=== PATIENT | male | born 1935 | race Caucasian/White ===

== ENCOUNTER 2016-09-09 04:56 | Inpatient (IN) | payer MEDICARE ==
[~2016-09-09] VITALS: Ht 177.8 cm; Wt 75.7 kg
[~2016-09-09 04:56] MED LIST: ALPR0.255 PO; ASPI-866 PO; CHOL20004 PO; DOCU-286 PO; GABA300C PO; HYDR-3326 PO; INSU100I14 SQ; INSU100V7 SQ; LEVO75TA PO; MAGN400T26 PO; ROSU10TA PO; TRIA0.252 PO
--- NOTE | 2016-09-09 05:09 | NUR ---
RA Tilley REPORTS THE PT TAKES THE FOLLOWING MEDICATIONS BUT DOES NOT KNOW THE DOSAGE OR THE TIMES: INSULIN, ARICEPT, ASPIRIN, COZARR, METOPROLOL, NEURONTIN, VALIUM, PLAVIX, RESTORIL Addendum: 09/09/16 at 0510 by SHENG PT IS NOT CERTAIN OF THE DOSAGES, OR THE TIMES OF THE MEDICATIONS....
[2016-09-09 05:33] LABS: BASOPHILS # (AUTO) 0.1 K/uL (0.0-8.0); BASOPHILS % (AUTO) 0.5 % (0.0-2.0); EOSINOPHILS # (AUTO) 1.6 K/uL (0.0-0.7); EOSINOPHILS % (AUTO) 10.7 % (0.0-7.0); HEMATOCRIT 28.9 % (40-50); HEMOGLOBIN 9.4 G/DL (14.0-18.0); LYMPHOCYTES % (AUTO) 7.1 % (20.5-51.5); MEAN CORPUSCULAR HEMOGLOBIN 27.1 UUG (27.0-31.0); MEAN CORPUSCULAR HGB CONC 33 g/dL (32.0-37.0); MEAN CORPUSCULAR VOLUME 83.1 FL (82.0-92.0); MONOCYTES # (AUTO) 1.4 K/UL (0.1-1.30); MONOCYTES % (AUTO) 9.3 % (0.0-11.0); NEUTROPHILS # (AUTO) 10.5 K/UL (1.8-8.9); NEUTROPHILS % (AUTO) 72.4 % (38.5-71.5); PLATELET COUNT (AUTO) 504 K/UL (150-450); RED BLOOD CELL COUNT(AUTO) 3.47 MIL/UL (4.7-6.1); WHITE BLOOD COUNT (AUTO) 14.6 K/UL (4.0-11.2)
[2016-09-09 05:39] LABS: CARBON DIOXIDE 27 mmol/L (21-32); CHLORIDE 101 mmol/L (98-107); CREATININE 2.5 mg/dL (0.6-1.3); GLUCOSE 120 mg/dL (74-106); POTASSIUM 3.9 mmol/L (3.5-5.1); UREA NITROGEN, BLOOD 54 mg/dL (7-18)
--- NOTE | 2016-09-09 05:42 | NUR ---
PT GIVEN A SANDWICH, CRACKERS AND APPLE JUICE; TOLERATING WELL
[2016-09-09 05:52] LABS: ALANINE AMINOTRANSFERASE 12 U/L (16-63); ALKALINE PHOSPHATASE 87 U/L (50-136); ASPARTATE AMINOTRANSFERASE 16 U/L (15-37); BILIRUBIN,DIRECT 0.1 mg/dL (0.0-0.2); BILIRUBIN,TOTAL 0.3 mg/dL (0.2-1.0); TOTAL PROTEIN, SERUM 6.5 g/dL (6.4-8.2)
[2016-09-09] MEDS ORDERED: LEVOFLOXACIN 500 MG/D5W 100ML PIGGYBACK IV ONE (06:15)
[2016-09-09] MEDS ORDERED: LEVOFLOXACIN 500 MG/D5W 100 ML ONE (06:36)
--- NOTE | 2016-09-09 06:45 | NUR ---
Dietary: Breakfast tray ordered.
--- NOTE | 2016-09-09 06:58 | NUR ---
PT RESTING QUIETLY; BELONGINGS LIST COMPLETED AND SIGNED BY PT. VSS; DENIES PAIN/SOB/DISCOMFORT.
--- NOTE | 2016-09-09 07:00 | NUR ---
ROSANAAR TO Trina SALTER RN
--- NOTE | 2016-09-09 08:09 | NUR ---
PT WAS TRANSFERED TO TELEMETRY ROOM #214. REPORT WAS GIVEN RN BAR HACKETT.
--- NOTE | 2016-09-09 08:24 | NUR ---
ADMITTED FROM ER AN 80 YO M WITH ADM DX OF HYPOGLYCEMIA, ALERT BUT FORGETFUL NO SIGNS OF DISTRESS. ROUTINE ADMISSION ASSESSMENT INITIATED. PB NOTIFY DR REDDY FOR ADM ORDERS. SR ON MONITOR
[2016-09-09 08:57] VITALS: BP 136/78
[2016-09-09] MEDS ORDERED: HYDROCODONE/APAP 5-325MG TABLET PO PRN (10:00)
[2016-09-09] MEDS ORDERED: DEXTROSE 50% 50 ML DISP.SYRIN IV PRN (10:00)
[2016-09-09] MEDS ORDERED: IV D5/ 0.9% NACL 1,000 ML IV PRN (10:15)
[2016-09-09] MEDS: ASPIRIN EC 81 MG TABLET.DR PO SCH (10:35)
[2016-09-09 11:08] VITALS: BP 132/64
[2016-09-09] MEDS: BLOOD SUGAR DIAGNOSTIC 1 EACH STRIP VI SCH ×3 (11:40→20:47)
[2016-09-09] MEDS: INSULIN REGULAR, HUMAN 300 UNIT/3 ML VIAL SQ PRN ×3 (11:41→21:16)
[2016-09-09] MEDS ORDERED: INSU100I24 SQ (11:55)
[2016-09-09 12:35] LABS: *BILIRUBIN,URIN NEGATIVE (NEGATIVE); *BLOOD, URINE NEGATIVE (NEGATIVE); *CLARITY,URINE CLEAR (CLEAR); *COLOR,URINE YELLOW (YELLOW); *KETONES,URINE NEGATIVE (NEGATIVE); *PROTEIN,URINE 2+ (NEGATIVE); *UROBILINOGEN,URINE 0.2 E.U./dl (NORMAL); LEUKOCYTE ESTERASE ,URINE NEGATIVE (NEGATIVE); NITRITE, URINE NEGATIVE (NEGATIVE); PH,URINE 5.5 (5.0-8.0); UGLUCOSE TRACE (NEGATIVE)
[2016-09-09 12:39] LABS: *CREATININE,URINE 66.6 mg/dL (30-125)
[2016-09-09 12:46] LABS: BACTERIA,URINE NONE SEEN /HPF (NONE SEEN); RBC,URINE NONE SEEN /HPF (0-3); SQUAMOUS EPITHELIAL CELL,UR FEW /HPF (NONE SEEN); WBC,URINE 0-3 /HPF (0-3)
--- NOTE | 2016-09-09 13:52 | NUR ---
SEEN BY DR REDDY SPOKE WITH FAMILY ABOUT PLAN OF CARE, SEE NOTES
[2016-09-09 15:05] VITALS: BP 150/61
--- NOTE | 2016-09-09 16:54 | NUR ---
CONTINUE WITH BS MONITORING, SR/SB ON MONITOR
[2016-09-09] MEDS: LEVOFLOXACIN 250MG /D5W 250 MG in PREMIXED 1 EACH IV SCH (17:06)
[2016-09-09 19:00] VITALS: BP 144/50
--- NOTE | 2016-09-09 20:00 | NUR ---
PT DIDN'T HAVE HIS TRESIBA, DR GUADARRAMA MADE AWARE BUT NO NEW ORDER,PT SAYS HE TAKES LANTUS WHEN IN HOSPITAL BUT WHEN ACCUCHECK IS 170 MG/DL, DR GUADARRAMA DIDNT NOT ORDER ANYTHING ELSE ,CONTINUE WITH SLIDING SCALE. LITTLE SNACK GIVEN ,MITESH CRACKERS AND SUGAR FREE PUDDING.WILL CONTINUE TO MONITOR,VSS,AFEBRILE
[2016-09-09] MEDS: MAGNESIUM OXIDE 400 MG TABLET PO SCH (20:07)
[2016-09-09] MEDS: DOCUSATE SODIUM 100 MG CAPSULE PO SCH (20:07)
[2016-09-09] MEDS: GABAPENTIN 300 MG CAPSULE PO SCH (20:08)
[2016-09-09] MEDS: TRESIBA (INSULIN DEGLUDEC) SQ SCH (20:10)
[2016-09-09] MEDS ORDERED: Medication Not On Formulary EA (Cholecalciferol (Vitamin D3) (Vitamin D CAPSULE) 2,000 U PO SCH (21:00)
[2016-09-09 23:35] VITALS: BP 136/65
[2016-09-10 04:00] VITALS: BP 147/51
[2016-09-10] MEDS: LEVOTHYROXINE SODIUM 75 MCG TABLET PO SCH (05:49)
[2016-09-10 06:32] LABS: BASOPHILS # (AUTO) 0.1 K/uL (0.0-8.0); BASOPHILS % (AUTO) 0.4 % (0.0-2.0); EOSINOPHILS # (AUTO) 1.2 K/uL (0.0-0.7); HEMATOCRIT 27.6 % (40-50); HEMOGLOBIN 9.1 G/DL (14.0-18.0); LYMPHOCYTES # (AUTO) 1.3 K/UL (0.8-4.8); LYMPHOCYTES % (AUTO) 8.6 % (20.5-51.5); MEAN CORPUSCULAR HEMOGLOBIN 28.1 UUG (27.0-31.0); MEAN CORPUSCULAR HGB CONC 33 g/dL (32.0-37.0); MEAN CORPUSCULAR VOLUME 85.3 FL (82.0-92.0); MONOCYTES # (AUTO) 1.7 K/UL (0.1-1.30); MONOCYTES % (AUTO) 10.8 % (0.0-11.0); NEUTROPHILS # (AUTO) 11.3 K/UL (1.8-8.9); NEUTROPHILS % (AUTO) 72.2 % (38.5-71.5); PLATELET COUNT (AUTO) 521 K/UL (150-450); RED BLOOD CELL COUNT(AUTO) 3.24 MIL/UL (4.7-6.1); WHITE BLOOD COUNT (AUTO) 15.6 K/UL (4.0-11.2)
--- NOTE | 2016-09-10 06:43 | NUR ---
PT SLEPT LATE, WATCHING TV DENIES ANY PAIN OR DISCOMFORT,VSS,AFEBRILE. SINUS RHYTHM WITH RBBB. UNEVENTFUL NIGHT, WILL CONTINUE TO MONITOR.
[2016-09-10 06:57] LABS: ALANINE AMINOTRANSFERASE 11 U/L (16-63); ALKALINE PHOSPHATASE 83 U/L (50-136); ASPARTATE AMINOTRANSFERASE 12 U/L (15-37); BILIRUBIN,TOTAL 0.3 mg/dL (0.2-1.0); CARBON DIOXIDE 25 mmol/L (21-32); CHLORIDE 101 mmol/L (98-107); CREATININE 2.4 mg/dL (0.6-1.3); GLUCOSE 242 mg/dL (74-106); PHOSPHOROUS 3.8 mg/dL (2.5-4.9); POTASSIUM 4.3 mmol/L (3.5-5.1); TOTAL PROTEIN, SERUM 6.1 g/dL (6.4-8.2); UREA NITROGEN, BLOOD 50 mg/dL (7-18)
[2016-09-10] MEDS: BLOOD SUGAR DIAGNOSTIC 1 EACH STRIP VI SCH ×4 (07:27→20:58)
[2016-09-10] MEDS: INSULIN REGULAR, HUMAN 300 UNIT/3 ML VIAL SQ PRN ×4 (07:27→20:58)
--- NOTE | 2016-09-10 08:00 | NUR ---
RESTING, NO SIGNS OF PAIN OR SOB SR ON MONITOR. AWAITING MASONRY CONTRACTOR ADMINISTRATOR REGARDING DC PLAN
[2016-09-10] MEDS: ASPIRIN EC 81 MG TABLET.DR PO SCH (08:31)
[2016-09-10] MEDS: CHOLECALCIFEROL 1,000 UNIT TABLET PO SCH (08:32)
[2016-09-10] MEDS ORDERED: LEVOTHYROXINE SODIUM 75 MCG TABLET PO SCH (09:00)
[2016-09-10] MEDS ORDERED: INSULIN DETEMIR 300 UNIT/3 ML CARTRIDGE SQ ONE (09:02)
[2016-09-10] MEDS ORDERED: TRESIBA SQ ONE (10:30)
[2016-09-10 10:53] LABS: BAND % (MANUAL) 4 % (0-10); EOSINOPHILS % (MANUAL) 7 % (0-8); LYMPHOCYTES % (MANUAL) 8 % (20-40); MONOCYTES % (MANUAL) 12 % (2-10); NEUTROPHILS % (MANUAL) 69 % (42-75)
[2016-09-10 11:04] VITALS: BP 143/55
--- NOTE | 2016-09-10 12:00 | NUR ---
REMAINS AFEBRILE, CONTINUE WITH ANTIBIOTIC ORDERED
[2016-09-10 15:10] VITALS: BP 144/61
--- NOTE | 2016-09-10 15:23 | NUR ---
SEEN BY DR PAULINO SPOKE WITH PATIENT AND GIRLFRIEND AT BEDSIDE, AGREED TO STAY FOR MANAGEMENT OF PNEUMONIA, CLEARED FAR CARDIAC STANDPOINT. SR ON MONITOR STATUS CHANED TO [facility]. DR REDDY MADE AWARE.
[2016-09-10] MEDS: LEVOFLOXACIN 250MG /D5W 250 MG in PREMIXED 1 EACH IV SCH (17:27)
--- NOTE | 2016-09-10 18:40 | NUR ---
female family member came to desk and asking to have his blood sugar rechecked - states did not eat his dinner, BS rechecked- 291 BS was done prior to dinner which was BS 319 and was covered with regular insulin as ordered, explained that BS will be rechecked again at bedtime, informed that pt will be watched closely, pt and family happy and satisfied, RN was in charge of pt was in formed
--- NOTE | 2016-09-10 19:40 | NUR ---
PT RECEIVED IN BED, AWAKE. ABLE TO MAKE NEEDS KNOWN. A/OX3. V/S STABLE. NO ACUTE DISTRESS NOTED. NO COMPLAINTS OF PAIN AT THIS TIME. SAFETY MEASURE IMPLEMENTED. BED ALARM SET. CALL LIGHT WITHIN REACH. WILL CONT TO MONITOR.
[2016-09-10 20:00] VITALS: BP 150/61
--- NOTE | 2016-09-10 20:00 | NUR ---
ACCUCHECK READING WAS 169. PT REFUSED HUMULIN AND TRESIBA INJECTION FOR COVERAGE. WILL CONTINUE TO MONITOR.
[2016-09-10] MEDS: DOCUSATE SODIUM 100 MG CAPSULE PO SCH (20:53)
[2016-09-10] MEDS: MAGNESIUM OXIDE 400 MG TABLET PO SCH (20:54)
[2016-09-10] MEDS: AMLODIPINE 5 MG TABLET PO SCH (20:54)
[2016-09-10] MEDS: GABAPENTIN 300 MG CAPSULE PO SCH (20:54)
[2016-09-10] MEDS: TRESIBA (INSULIN DEGLUDEC) SQ SCH (21:00)
[2016-09-11 04:00] VITALS: BP 152/61
--- NOTE | 2016-09-11 05:50 | NUR ---
END OF SHIFT NOTES. PT SLEPT WELL DURING THE NIGHT. V/S STABLE. NO ACUTE DISTRESS NOTED. NO COMPLAINTS OF PAIN DURING THE NIGHT. NEEDS ATTENDED. SAFETY MAINTAINED THROUGHOUT SHIFT. CALL LIGHT WITHIN REACH.
[2016-09-11] MEDS: LEVOTHYROXINE SODIUM 75 MCG TABLET PO SCH (06:34)
[2016-09-11] MEDS: BLOOD SUGAR DIAGNOSTIC 1 EACH STRIP VI SCH ×2 (06:37→11:30)
[2016-09-11 07:03] LABS: BASOPHILS # (AUTO) 0.1 K/uL (0.0-8.0); BASOPHILS % (AUTO) 0.7 % (0.0-2.0); EOSINOPHILS # (AUTO) 1.8 K/uL (0.0-0.7); EOSINOPHILS % (AUTO) 12.3 % (0.0-7.0); HEMATOCRIT 27.5 % (40-50); HEMOGLOBIN 9.2 G/DL (14.0-18.0); LYMPHOCYTES # (AUTO) 1.6 K/UL (0.8-4.8); LYMPHOCYTES % (AUTO) 10.9 % (20.5-51.5); MEAN CORPUSCULAR HGB CONC 34 g/dL (32.0-37.0); MEAN CORPUSCULAR VOLUME 83.7 FL (82.0-92.0); MONOCYTES # (AUTO) 1.7 K/UL (0.1-1.30); MONOCYTES % (AUTO) 11.9 % (0.0-11.0); NEUTROPHILS # (AUTO) 9.1 K/UL (1.8-8.9); NEUTROPHILS % (AUTO) 64.2 % (38.5-71.5); PLATELET COUNT (AUTO) 523 K/UL (150-450); RED BLOOD CELL COUNT(AUTO) 3.28 MIL/UL (4.7-6.1); WHITE BLOOD COUNT (AUTO) 14.3 K/UL (4.0-11.2)
--- NOTE | 2016-09-11 07:25 | NUR ---
PATIENT IN BED SLEEPING, NO EVIDENCE OF DISTRESS/SOB, BED ALARM ON, SIDE RAILS UP X2, BED IN LOW POSITION.
[2016-09-11 07:27] LABS: CARBON DIOXIDE 27 mmol/L (21-32); CHLORIDE 102 mmol/L (98-107); CREATININE 2.4 mg/dL (0.6-1.3); GLUCOSE 89 mg/dL (74-106); PHOSPHOROUS 3.7 mg/dL (2.5-4.9); POTASSIUM 3.9 mmol/L (3.5-5.1); UREA NITROGEN, BLOOD 46 mg/dL (7-18)
[2016-09-11] MEDS: ASPIRIN EC 81 MG TABLET.DR PO SCH (08:33)
[2016-09-11] MEDS: CHOLECALCIFEROL 1,000 UNIT TABLET PO SCH (08:33)
[2016-09-11] MEDS: AMLODIPINE 5 MG TABLET PO SCH (08:39)
[2016-09-11] MEDS ORDERED: INSULIN DETEMIR 300 UNIT/3 ML CARTRIDGE SQ ONE (09:02)
[2016-09-11 10:50] LABS: BAND % (MANUAL) 2 % (0-10); EOSINOPHILS % (MANUAL) 14 % (0-8); LYMPHOCYTES % (MANUAL) 14 % (20-40); MONOCYTES % (MANUAL) 9 % (2-10); NEUTROPHILS % (MANUAL) 61 % (42-75)
[2016-09-11 11:33] VITALS: BP 151/52
--- NOTE | 2016-09-11 13:30 | NUR ---
PATIENT DECLINED SERVED FOOD FROM DIETARY IN ORDER TO EAT IN&OUT BURGER BROUGHT IN BY FAMILY. INSULIN WAS DELAYED UNTIL THE TIME THAT THE FAMILY BROUGHT THE FOOD.
[2016-09-11] MEDS: INSULIN REGULAR, HUMAN 300 UNIT/3 ML VIAL SQ PRN (13:52)
[2016-09-11] MEDS: LEVOFLOXACIN 250MG /D5W 250 MG in PREMIXED 1 EACH IV SCH (13:54)
[2016-09-11] MEDS ORDERED: AMLO5TAB2 PO (15:09)
[2016-09-11] MEDS ORDERED: LEVO500T2 PO (15:16)
--- NOTE | 2016-09-11 15:53 | NUR ---
PATIENT HAS BEEN DISCHARGED FROM THE UNIT, NO EVIDENCE OF DISTRESS/SOB OR PAIN.
[2016-09-11 15:59] VITALS: BP 139/51
== END 2016-09-11 15:50 | disposition home or self-care (01) | DRG 871 ==
LOC: ER 04:59 → TELE 07:27 → MED 09-10 18:26
PROVIDERS: ADMIT Internal Medicine; ATTEND Internal Medicine
DX: A41.9 Sepsis, unspecified organism (principal); N17.0 Acute kidney failure with tubular necrosis; I50.33 Acute on chronic diastolic (congestive) heart failure; J69.0 Pneumonitis due to inhalation of food and vomit; G93.41 Metabolic encephalopathy; I13.0 Hypertensive heart and chronic kidney disease with heart failure and stage 1 through stage 4 chronic kidney disease, or unspecified chronic kidney disease; E03.9 Hypothyroidism, unspecified; E10.649 Type 1 diabetes mellitus with hypoglycemia without coma; E10.22 Type 1 diabetes mellitus with diabetic chronic kidney disease; E10.65 Type 1 diabetes mellitus with hyperglycemia; N18.9 Chronic kidney disease, unspecified; Z95.2 Presence of prosthetic heart valve; Z88.0 Allergy status to penicillin; Z86.73 Personal history of transient ischemic attack (TIA), and cerebral infarction without residual deficits; Z83.3 Family history of diabetes mellitus; Z79.4 Long term (current) use of insulin; Z79.82 Long term (current) use of aspirin; D50.9 Iron deficiency anemia, unspecified; R19.5 Other fecal abnormalities; J44.9 Chronic obstructive pulmonary disease, unspecified; F17.210 Nicotine dependence, cigarettes, uncomplicated; Z74.09 Other reduced mobility; R29.6 Repeated falls; I34.0 Nonrheumatic mitral (valve) insufficiency; E78.5 Hyperlipidemia, unspecified; E86.9 Volume depletion, unspecified; I70.0 Atherosclerosis of aorta
CPT/HCPCS: 36415; 70030-TC; 71010; 83605; 83735; 84100; 84300; 84443; 85025; 85730; 87040; 87086; 87278; 87400; 93005; 93307; A4663; J1815; J1956; J7042

== ENCOUNTER 2016-10-04 01:31 | Inpatient (IN) | payer BC, MEDICARE ==
[~2016-10-04] VITALS: Ht 177.8 cm; Wt 69.1 kg
[~2016-10-04 01:31] MED LIST changes: +AMLO5TAB2 PO; +INSU100I24 SQ; -INSU100V7 SQ; +LEVO500T2 PO
[2016-10-04 02:15] LABS: *BILIRUBIN,URIN NEGATIVE (NEGATIVE); *BLOOD, URINE NEGATIVE (NEGATIVE); *CLARITY,URINE CLEAR (CLEAR); *COLOR,URINE YELLOW (YELLOW); *KETONES,URINE NEGATIVE (NEGATIVE); *PROTEIN,URINE 1+ (NEGATIVE); *UROBILINOGEN,URINE 0.2 E.U./dl (NORMAL); LEUKOCYTE ESTERASE ,URINE NEGATIVE (NEGATIVE); NITRITE, URINE NEGATIVE (NEGATIVE); UGLUCOSE NEGATIVE (NEGATIVE)
[2016-10-04 02:18] LABS: BASOPHILS # (AUTO) 0.1 K/uL (0.0-8.0); BASOPHILS % (AUTO) 0.7 % (0.0-2.0); EOSINOPHILS # (AUTO) 1.9 K/uL (0.0-0.7); EOSINOPHILS % (AUTO) 18.3 % (0.0-7.0); HEMATOCRIT 26.8 % (40-50); HEMOGLOBIN 8.7 G/DL (14.0-18.0); LYMPHOCYTES # (AUTO) 1.6 K/UL (0.8-4.8); LYMPHOCYTES % (AUTO) 15.5 % (20.5-51.5); MEAN CORPUSCULAR HEMOGLOBIN 27.3 UUG (27.0-31.0); MEAN CORPUSCULAR HGB CONC 33 g/dL (32.0-37.0); MEAN CORPUSCULAR VOLUME 83.7 FL (82.0-92.0); MONOCYTES # (AUTO) 1.2 K/UL (0.1-1.30); MONOCYTES % (AUTO) 11.7 % (0.0-11.0); NEUTROPHILS # (AUTO) 5.8 K/UL (1.8-8.9); NEUTROPHILS % (AUTO) 53.8 % (38.5-71.5); PLATELET COUNT (AUTO) 393 K/UL (150-450); WHITE BLOOD COUNT (AUTO) 10.6 K/UL (4.0-11.2)
[2016-10-04 02:23] LABS: BACTERIA,URINE FEW /HPF (NONE SEEN); RBC,URINE 0-3 /HPF (0-3); SQUAMOUS EPITHELIAL CELL,UR FEW /HPF (NONE SEEN); WBC,URINE 0-3 /HPF (0-3)
[2016-10-04 02:24] LABS: *AMPHETAMINE, URINE NEGATIVE (NEGATIVE); *BARBITURATE, URINE NEGATIVE (NEGATIVE); *CANNABINOID, URINE NEGATIVE (NEGATIVE); *COCCAINE, URINE NEGATIVE (NEGATIVE); *OPIATE, URINE NEGATIVE (NEGATIVE); *PHENCYCLIDINE SCREEN,URINE NEGATIVE (NEGATIVE)
[2016-10-04 02:27] LABS: CARBON DIOXIDE 29 mmol/L (21-32); CHLORIDE 100 mmol/L (98-107); CREATININE 2.3 mg/dL (0.6-1.3); ETHANOL < 3 MG/DL (0-0); GLUCOSE 165 mg/dL (74-106); POTASSIUM 3.8 mmol/L (3.5-5.1); UREA NITROGEN, BLOOD 41 mg/dL (7-18)
[2016-10-04 02:32] LABS: ALANINE AMINOTRANSFERASE 14 U/L (16-63); ALKALINE PHOSPHATASE 89 U/L (50-136); ASPARTATE AMINOTRANSFERASE 13 U/L (15-37); BILIRUBIN,DIRECT 0.1 mg/dL (0.0-0.2); BILIRUBIN,TOTAL 0.2 mg/dL (0.2-1.0); TOTAL PROTEIN, SERUM 6.9 g/dL (6.4-8.2)
[2016-10-04 02:34] LABS: ACETAMINOPHEN < 2.0 ug/mL (10-30)
[2016-10-04 02:40] LABS: THYROID STIMULATING HORMONE 3.482 mIU/mL (0.358-3.740)
[2016-10-04] MEDS ORDERED: MAGNESIUM HYDROXIDE 30 ML LIQUID UDC PO PRN (04:00)
[2016-10-04] MEDS ORDERED: ACETAMINOPHEN 325 MG TABLET PO PRN (04:00)
[2016-10-04] MEDS ORDERED: DEXTROSE 50% 50 ML DISP.SYRIN IV PRN (04:00)
[2016-10-04] MEDS ORDERED: Z GUARD REMEDY PASTE 57 GM TUBE TOP PRN (04:00)
[2016-10-04] MEDS ORDERED: ONDANSETRON 4 MG/2 ML VIAL IV PRN (04:00)
--- NOTE | 2016-10-04 04:15 | NUR ---
RECEIVED PT FROM ER VIA GURNEY. REPORT GIVEN BY JESSICA LEBLANC. PT IS ALERT, RESPONSIVE, IN NO ACUTE DISTRESS. PT IS ADMITTED TO TELE UNDER THE CARE OF MOODY LOCKETT NP. DX: ENCEPHALOPATHY. ADMISSION PROCESS AND CARE PLAN INITIATED. ADMISSION ORDERS DONE BY MOODY LOCKETT NP. SAFETY MEASURES IN PLACE, CALL LIGHT WITHIN REACH, BED ALARM ON. WILL CONTINUE TO MONITOR.
[2016-10-04 04:35] VITALS: BP 152/61
[2016-10-04] MEDS: BLOOD SUGAR DIAGNOSTIC 1 EACH STRIP VI SCH ×4 (06:45→20:51)
--- NOTE | 2016-10-04 07:10 | NUR ---
RECEIVED REPORT FROM APPLICATIONS ENGINEER, PATIENT IN BED SLEEPING, BED IN LOW POSITION, SIDE RAILS UP X2.
[2016-10-04] MEDS: ASPIRIN EC 81 MG TABLET.DR PO SCH (08:15)
[2016-10-04] MEDS: LEVOTHYROXINE SODIUM 75 MCG TABLET PO SCH (08:15)
[2016-10-04] MEDS: AMLODIPINE 5 MG TABLET PO SCH ×2 (08:21→20:52)
[2016-10-04] MEDS ORDERED: BISACODYL 5 MG TABLET.DR PO ONE (10:15)
[2016-10-04] MEDS ORDERED: hydrALAZINE HCL 25 MG TABLET PO PRN (10:15)
[2016-10-04] MEDS ORDERED: AZITHROMYCIN IV 500 MG in IV DEXTROSE 5% 250 ML IV SCH (11:00)
[2016-10-04 11:02] VITALS: BP 120/68
[2016-10-04 11:14] LABS: BASOPHILS # (AUTO) 0.1 K/uL (0.0-8.0); BASOPHILS % (AUTO) 0.5 % (0.0-2.0); EOSINOPHILS % (AUTO) 19.2 % (0.0-7.0); HEMATOCRIT 29.3 % (40-50); HEMOGLOBIN 9.7 G/DL (14.0-18.0); LYMPHOCYTES # (AUTO) 1.2 K/UL (0.8-4.8); LYMPHOCYTES % (AUTO) 12.1 % (20.5-51.5); MEAN CORPUSCULAR HEMOGLOBIN 27.5 UUG (27.0-31.0); MEAN CORPUSCULAR HGB CONC 33 g/dL (32.0-37.0); MEAN CORPUSCULAR VOLUME 82.7 FL (82.0-92.0); MONOCYTES % (AUTO) 10.1 % (0.0-11.0); NEUTROPHILS % (AUTO) 58.1 % (38.5-71.5); PLATELET COUNT (AUTO) 419 K/UL (150-450); RED BLOOD CELL COUNT(AUTO) 3.55 MIL/UL (4.7-6.1); WHITE BLOOD COUNT (AUTO) 10.3 K/UL (4.0-11.2)
[2016-10-04 11:19] LABS: ALANINE AMINOTRANSFERASE 20 U/L (16-63); ALKALINE PHOSPHATASE 84 U/L (50-136); ASPARTATE AMINOTRANSFERASE 15 U/L (15-37); BILIRUBIN,TOTAL 0.3 mg/dL (0.2-1.0); CARBON DIOXIDE 30 mmol/L (21-32); CHLORIDE 102 mmol/L (98-107); CREATININE 2.1 mg/dL (0.6-1.3); GLUCOSE 88 mg/dL (74-106); IRON, SERUM 24 ug/dL (50-175); MAGNESIUM 1.8 mg/dL (1.8-2.4); POTASSIUM 3.9 mmol/L (3.5-5.1); TOTAL PROTEIN, SERUM 6.5 g/dL (6.4-8.2); UREA NITROGEN, BLOOD 39 mg/dL (7-18)
[2016-10-04 11:44] LABS: THYROID STIMULATING HORMONE 3.099 mIU/mL (0.358-3.740)
--- NOTE | 2016-10-04 12:00 | NUR ---
PATIENT IS IN BED, REPORTED PAIN ON LEFT RIB AREA. PATIENTS FAMILY REPORTED THAT HE FELL DOWN IN A STORE AND DIDN'T WANT ANYONE TO KNOW ABOUT IT. Trina DUCNAN ORDERED AN X-RAY OF RIBS BUT PATIENT DECLINED TO ALLOW ANY FURTHER IMAGING.
[2016-10-04] MEDS: INSULIN REGULAR, HUMAN 300 UNIT/3 ML VIAL SQ PRN ×3 (12:44→21:01)
[2016-10-04] MEDS ORDERED: BISACODYL 10 MG SUPP.RECT RC PRN (13:45)
[2016-10-04] MEDS: DOCUSATE SODIUM 100 MG CAPSULE PO SCH ×2 (13:45→20:52)
--- NOTE | 2016-10-04 14:00 | NUR ---
PT REFUSED RIB SERIES X-RAY. PREVIOUSLY HAD CXR THIS MORNING
[2016-10-04] MEDS: MAGNESIUM OXIDE 400 MG TABLET PO SCH (14:29)
[2016-10-04 15:07] VITALS: BP 146/60
[2016-10-04] MEDS ORDERED: IV 1/2NS 1000 ML 500 ML IV PRN (16:15)
--- NOTE | 2016-10-04 17:22 | NUR ---
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 PATIENT ORDERED HIS OWN FOOD FROM OUTSIDE SOURCE OF THE HOSPITAL.
--- NOTE | 2016-10-04 18:00 | NUR ---
PATIENT IS IN BED, AWAKE, NO EVIDENCE OF DISTRESS NOTED. NO SHORTNESS OF BREATH, NO PAIN. BED IS IN LOW POSITION, SIDE RAILS UP X2.
--- NOTE | 2016-10-04 20:00 | NUR ---
PATIENT AWAKE,ALERT,IN NO ACUTE DISTRESS,NSR,SB ON MONITOR,AFEBRILE, O2 SAT 98% IN ROOM AIR,NO SOB NOTED, FAMILY AT BEDSIDE.
[2016-10-04 20:05] VITALS: BP 153/62
[2016-10-04] MEDS ORDERED: ATORVASTATIN 20 MG TABLET PO SCH (21:00)
[2016-10-04] MEDS ORDERED: DOCUSATE SODIUM 100 MG CAPSULE PO SCH (21:00)
[2016-10-04] MEDS ORDERED: CHOLECALCIFEROL 1,000 UNIT TABLET PO SCH (21:00)
[2016-10-04] MEDS ORDERED: GABAPENTIN 300 MG CAPSULE PO SCH (21:00)
--- NOTE | 2016-10-04 21:30 | NUR ---
TELE D/C ORDERED,PATIENT TURN AND REPOSITION, C/O PAIN TO RIGHT RIBS,DOES NOT WANTS ANY PAIN MEDS,BLOOD SUGAR CHEK 159, PATIENT REQUESTED TO HOLD INSULIN SLIDING SCALE, STATED NOT EATING MUCH.
[2016-10-04] MEDS ORDERED: ZOLPIDEM 5 MG TABLET PO PRN (23:00)
[2016-10-05 00:02] VITALS: BP 164/68
[2016-10-05] MEDS ORDERED: ZOLPIDEM 5 MG TABLET ONE (00:14)
[2016-10-05 05:18] VITALS: BP 102/62
[2016-10-05] MEDS: LEVOTHYROXINE SODIUM 75 MCG TABLET PO SCH (05:38)
[2016-10-05] MEDS: BLOOD SUGAR DIAGNOSTIC 1 EACH STRIP VI SCH (05:38)
[2016-10-05 05:58] LABS: BASOPHILS # (AUTO) 0.1 K/uL (0.0-8.0); BASOPHILS % (AUTO) 0.6 % (0.0-2.0); EOSINOPHILS % (AUTO) 18.4 % (0.0-7.0); HEMATOCRIT 28.2 % (40-50); HEMOGLOBIN 9.6 G/DL (14.0-18.0); LYMPHOCYTES # (AUTO) 1.6 K/UL (0.8-4.8); LYMPHOCYTES % (AUTO) 14.8 % (20.5-51.5); MEAN CORPUSCULAR HEMOGLOBIN 28.5 UUG (27.0-31.0); MEAN CORPUSCULAR HGB CONC 34 g/dL (32.0-37.0); MEAN CORPUSCULAR VOLUME 83.3 FL (82.0-92.0); MONOCYTES # (AUTO) 1.1 K/UL (0.1-1.30); MONOCYTES % (AUTO) 10.2 % (0.0-11.0); NEUTROPHILS # (AUTO) 6.1 K/UL (1.8-8.9); PLATELET COUNT (AUTO) 379 K/UL (150-450); RED BLOOD CELL COUNT(AUTO) 3.38 MIL/UL (4.7-6.1); WHITE BLOOD COUNT (AUTO) 10.9 K/UL (4.0-11.2)
[2016-10-05 06:22] LABS: ALANINE AMINOTRANSFERASE 12 U/L (16-63); ALKALINE PHOSPHATASE 83 U/L (50-136); ASPARTATE AMINOTRANSFERASE 14 U/L (15-37); BILIRUBIN,TOTAL 0.3 mg/dL (0.2-1.0); CARBON DIOXIDE 25 mmol/L (21-32); CHLORIDE 99 mmol/L (98-107); GLUCOSE 243 mg/dL (74-106); MAGNESIUM 1.7 mg/dL (1.8-2.4); PHOSPHOROUS 3.8 mg/dL (2.5-4.9); POTASSIUM 4.3 mmol/L (3.5-5.1); TOTAL PROTEIN, SERUM 6.2 g/dL (6.4-8.2); UREA NITROGEN, BLOOD 39 mg/dL (7-18)
--- NOTE | 2016-10-05 07:10 | NUR ---
Received report from shift mgr nurse, patient is in bed sleeping, no evidence of distress, no SOB, bed in low position, side rails up x2.
[2016-10-05 07:16] LABS: CHOLESTEROL 123 mg/dL (<200); HDL CHOLESTEROL 40 mg/dL (40-60); TRIGLYCERIDES 79 MG/DL (30-150)
[2016-10-05] MEDS: INSULIN REGULAR, HUMAN 300 UNIT/3 ML VIAL SQ PRN (08:04)
[2016-10-05 08:07] VITALS: BP 165/68
[2016-10-05] MEDS: DOCUSATE SODIUM 100 MG CAPSULE PO SCH (08:07)
[2016-10-05] MEDS: MAGNESIUM OXIDE 400 MG TABLET PO SCH (08:07)
[2016-10-05] MEDS: AMLODIPINE 5 MG TABLET PO SCH (08:07)
[2016-10-05] MEDS: ASPIRIN EC 81 MG TABLET.DR PO SCH (08:08)
--- NOTE | 2016-10-05 10:30 | NUR ---
PATIENT WAS VISITED BY GIRLFRIENSubha SHUKLA, AND WAS ASSISTED IN CHANGING HIS CLOTHING. PATIENTS GIRLFRIEND THEN APPROACHED NURSING STATION STATING THAT SHE IS TAKING PATIENT HOME. DR GUADARRAMA NOTIFIED ABOUT THE SITUATION AND INSTRUCTED TO DISCHARGE THE PATIENT AND FOLLOW UP MEDICATIONS WILL BE SENT TO [facility] IF NECESSARY. PATIENT WAS INSTRUCTED TO FOLLOW UP WITH PRIMARY CARE PHYSICIAN.
[2016-10-05] MEDS ORDERED: VALSARTAN 80 MG TABLET PO SCH (12:00)
[2016-10-05 12:02] LABS: *CREATININE,URINE 35.6 mg/dL (30-125)
[2016-10-05] MEDS ORDERED: MAGNESIUM OXIDE 400 MG TABLET PO ONE (14:30)
[2016-10-05] MEDS ORDERED: VALS80TA2 PO (16:04)
== END 2016-10-05 10:45 | disposition home or self-care (01) | DRG 917 ==
LOC: ER 01:35 → TELE 03:35 → MED 21:30
PROVIDERS: ADMIT Contractor; ATTEND Internal Medicine
DX: T40.2X1A Poisoning by other opioids, accidental (unintentional), initial encounter (principal); G92 Toxic encephalopathy; J18.9 Pneumonia, unspecified organism; I50.33 Acute on chronic diastolic (congestive) heart failure; N17.0 Acute kidney failure with tubular necrosis; J44.0 Chronic obstructive pulmonary disease with (acute) lower respiratory infection; I13.0 Hypertensive heart and chronic kidney disease with heart failure and stage 1 through stage 4 chronic kidney disease, or unspecified chronic kidney disease; E44.0 Moderate protein-calorie malnutrition; I69.354 Hemiplegia and hemiparesis following cerebral infarction affecting left non-dominant side; N39.0 Urinary tract infection, site not specified; J98.11 Atelectasis; Y92.003 Bedroom of unspecified non-institutional (private) residence as the place of occurrence of the external cause; Z87.891 Personal history of nicotine dependence; E11.22 Type 2 diabetes mellitus with diabetic chronic kidney disease; E11.65 Type 2 diabetes mellitus with hyperglycemia; N18.9 Chronic kidney disease, unspecified; Z79.4 Long term (current) use of insulin; K59.00 Constipation, unspecified; Z68.21 Body mass index [BMI] 21.0-21.9, adult; S20.212A Contusion of left front wall of thorax, initial encounter; W19.XXXA Unspecified fall, initial encounter; Y92.89 Other specified places as the place of occurrence of the external cause; M43.17 Spondylolisthesis, lumbosacral region; Z95.2 Presence of prosthetic heart valve; Z90.49 Acquired absence of other specified parts of digestive tract; Z87.440 Personal history of urinary (tract) infections; Z91.81 History of falling; E78.5 Hyperlipidemia, unspecified; G47.00 Insomnia, unspecified; E03.9 Hypothyroidism, unspecified; Z87.01 Personal history of pneumonia (recurrent); I08.1 Rheumatic disorders of both mitral and tricuspid valves; D53.9 Nutritional anemia, unspecified; Z88.0 Allergy status to penicillin
CPT/HCPCS: 36415; 70030-TC; 70450; 71010; 71250; 80307; 83550; 83735; 84100; 84300; 84443; 85025; 85730; 93005; G0480; G0480-TC; J0456; J1815; J3490; J7060

== ENCOUNTER 2017-04-11 02:33 | Inpatient (IN) | payer MEDICARE ==
[~2017-04-11] VITALS: Ht 182.9 cm; Wt 68.0 kg
[2017-04-11] VITALS (9 sets, daily range): BP systolic 94–136; BP diastolic 35–64
[~2017-04-11 02:33] MED LIST changes: +VALS80TA2 PO
--- NOTE | 2017-04-11 02:40 | NUR ---
Pt BIB [facility], IV 18g R AC, JH=963, reports pt found in bed by GIN and snoring respirations, administered Narcan, pt aroused at the time. Upon arrival, pt's eyes were partially open, but pt did not respond to pain. no distress noted. Pt placed on monitor, EKG -- given to
--- NOTE | 2017-04-11 03:07 | NUR ---
Pt taken to CT
[2017-04-11 03:18] LABS: BASOPHILS # (AUTO) 0.1 K/uL (0.0-8.0); BASOPHILS % (AUTO) 0.7 % (0.0-2.0); EOSINOPHILS # (AUTO) 0.4 K/uL (0.0-0.7); EOSINOPHILS % (AUTO) 3.2 % (0.0-7.0); HEMATOCRIT 25.1 % (36.7-47.1); HEMOGLOBIN 8.4 g/dL (12.5-16.3); LYMPHOCYTES # (AUTO) 1.5 K/uL (20.0-40.0); LYMPHOCYTES % (AUTO) 11.6 % (20.5-51.5); MEAN CORPUSCULAR HGB CONC 33 g/dL (32.5-36.3); MEAN CORPUSCULAR VOLUME 84.1 fL (73.0-96.2); MONOCYTES # (AUTO) 1.6 K/uL (2.0-10.0); MONOCYTES % (AUTO) 12.5 % (0.0-11.0); NEUTROPHILS # (AUTO) 9.1 K/uL (1.8-8.9); PLATELET COUNT (AUTO) 303 K/uL (152-348); RED BLOOD CELL COUNT(AUTO) 2.99 MIL/uL (4.06-5.63); WHITE BLOOD COUNT (AUTO) 12.6 K/uL (3.6-10.2)
[2017-04-11 03:29] LABS: CARBON DIOXIDE 30 mmol/L (21-32); CHLORIDE 100 mmol/L (98-107); CREATININE 2.7 mg/dL (0.6-1.3); GLUCOSE 102 mg/dL (74-106); POTASSIUM 4.7 mmol/L (3.5-5.1); UREA NITROGEN, BLOOD 49 mg/dL (7-18)
[2017-04-11] MEDS ORDERED: NALOXONE HCL 0.4 MG/ML AMPUL IV ONE (03:30)
[2017-04-11] MEDS ORDERED: LEVO88TA5 PO (03:37)
--- NOTE | 2017-04-11 03:39 | NUR ---
IN TO SEE PT SHE FORGOT TO BRING IN LIST OF MEDS.WILL BRING IN LATER.UNABLE TO VERIFY MEDS THAT ARE LISTED
[2017-04-11 03:43] LABS: THYROID STIMULATING HORMONE 1.645 mIU/mL (0.358-3.740)
[2017-04-11 03:44] LABS: ALANINE AMINOTRANSFERASE 10 U/L (16-63); ALKALINE PHOSPHATASE 77 U/L (50-136); ASPARTATE AMINOTRANSFERASE 13 U/L (15-37); BILIRUBIN,DIRECT 0.1 mg/dL (0.0-0.2); BILIRUBIN,TOTAL 0.3 mg/dL (0.2-1.0); ETHANOL < 3 MG/DL (0-0); TOTAL PROTEIN, SERUM 6.3 g/dL (6.4-8.2)
--- NOTE | 2017-04-11 03:50 | NUR ---
Inserted catheter to obtain urine sample using aseptic technique. Sample taken to lab.
--- NOTE | 2017-04-11 03:57 | NUR ---
Pt is somewhat alert, but is oriented to name and place, not fully oriented to time. Administered Narcan. Pt alertness and orientation did not change.
[2017-04-11 03:59] LABS: *BILIRUBIN,URIN NEGATIVE (NEGATIVE); *BLOOD, URINE NEGATIVE (NEGATIVE); *CLARITY,URINE CLEAR (CLEAR); *COLOR,URINE YELLOW (YELLOW); *KETONES,URINE NEGATIVE (NEGATIVE); *PROTEIN,URINE 2+ (NEGATIVE); *UROBILINOGEN,URINE 0.2 E.U./dl (NORMAL); LEUKOCYTE ESTERASE ,URINE NEGATIVE (NEGATIVE); NITRITE, URINE NEGATIVE (NEGATIVE); UGLUCOSE NEGATIVE (NEGATIVE)
[2017-04-11] MEDS ORDERED: NALOXONE HCL 0.4 MG/ML AMPUL ONE (04:08)
[2017-04-11 04:10] LABS: BACTERIA,URINE NONE SEEN /HPF (NONE SEEN); RBC,URINE NONE SEEN /HPF (0-3); SQUAMOUS EPITHELIAL CELL,UR FEW /HPF (NONE SEEN); WBC,URINE 0-3 /HPF (0-3)
[2017-04-11 04:11] LABS: URINE AMORPHOUS URATE MODERATE /HPF
--- NOTE | 2017-04-11 04:46 | NUR ---
[facility] paged for Dr. Guillermo.
[2017-04-11] MEDS ORDERED: ONDANSETRON 4 MG/2 ML VIAL IV PRN (05:00)
[2017-04-11] MEDS ORDERED: IV NS 1000 ML 1,000 ML IV PRN (05:00)
[2017-04-11] MEDS ORDERED: ACETAMINOPHEN 325 MG TABLET PO PRN (05:00)
[2017-04-11] MEDS ORDERED: MAGNESIUM HYDROXIDE 30 ML LIQUID UDC PO PRN (05:00)
[2017-04-11] MEDS ORDERED: Z GUARD REMEDY PASTE 57 GM TUBE TOP PRN (05:00)
[2017-04-11 05:40] LABS: *AMPHETAMINE, URINE NEGATIVE (NEGATIVE); *BARBITURATE, URINE NEGATIVE (NEGATIVE); *CANNABINOID, URINE NEGATIVE (NEGATIVE); *COCCAINE, URINE NEGATIVE (NEGATIVE); *OPIATE, URINE NEGATIVE (NEGATIVE); *PHENCYCLIDINE SCREEN,URINE NEGATIVE (NEGATIVE)
--- NOTE | 2017-04-11 05:52 | NUR ---
Called report to Violet.
--- NOTE | 2017-04-11 06:20 | NUR ---
PATIENT BROUGHT UP VIA GURNEY FROM ER. PATIENT AROUSABLE BUT FALLS BACK ASLEEP QUICKLY. PLACED ON TELE ORDERED, SB. NO RESP. DISTRESS NOTED. ALL NEEDS ATTENDED. WILL CONTINUE TO MONITOR.
--- NOTE | 2017-04-11 06:52 | NUR ---
nsg: pt rectal temp is 93.4F and 94.2F rectal. unable to obtain oral and axillary. paged Dr. Thomas.
--- NOTE | 2017-04-11 06:58 | NUR ---
NSG: SPOKE WITH DR. OLIVIER, NOTIFIED REGARDING LOW TEMP OF 93.4F AND 94.2F RECTAL. RECEIVED ORDER TO PUT ON BEAR HUGGER OR WARMING BLANKET.
[2017-04-11] MEDS ORDERED: DEXTROSE 50% 50 ML DISP.SYRIN IV ONE (08:00)
--- NOTE | 2017-04-11 08:00 | NUR ---
0730 Pt lethargic difficult to arouse. Rectal temp 93.5 degree. Pt on karina dannygger. Checked bs 57. Placed Call to DR lopez. Got order for D50 x 1 50cc - recheked 194. Will continue to monitor pt's VSS and temp. SEE VSS flow sheet.
--- NOTE | 2017-04-11 09:00 | NUR ---
Pt easier more arousable less confused. Alert and oriented x 2. Reoriented pt to time and place. Spoke with Ese OCAMPO / DR Bee increased IVF to 100cc/hr. Will continue to monitor pt's TEMP. Pt remains on SARWAT hugger - skin remains intact NO s/s of skin richardson. REDNESS on coccyx, UE's bruising and right leg redness noted. IV on right ac remains intact.
--- NOTE | 2017-04-11 12:00 | NUR ---
Pt now talking with family members at bedside. Pt more awake and alert. Call light is within reach.
--- NOTE | 2017-04-11 18:00 | NUR ---
Dr baer here to see pt. Pt more awake and alert. Pt now calling for assistance to use urinal. SIVA Ramos updated by DR baer re: plans for patient. Pt had good appetite for dinner. Awaiting further orders from DR baer to reconcile medications. Pt is in no acute distress. SARWAT YANG TAKEN OFF.
[2017-04-11] MEDS: IV NS 1000 ML 1,000 ML IV PRN (18:13)
--- NOTE | 2017-04-11 19:20 | NUR ---
Received patient awake, using urinal at bedside. Voiding with no problem. Denies any pain/discomforts at this time. Continue care as planned.
--- NOTE | 2017-04-11 20:02 | NUR ---
BS checked 319 mg/dl. Denies any s/s of hyperglycemia. No insulin coverage given at this time. awaiting order for Accu check and sliding scale coverage. Will monitor.
--- NOTE | 2017-04-11 20:28 | NUR ---
Complaint that he is hungry and have no dinner taken yet. Offered ham sandwich and milk at this time.
--- NOTE | 2017-04-11 21:53 | NUR ---
Diaper changed at this time, able to assessed skin integrity/breakdown, small skin opening noted on coccyx area, cleansed with soap and water, patted dry and covered with mepelex dressing, tolerated well. Repositioned self for comfort. Will monitor.
[2017-04-12] VITALS: BP 140/51
[2017-04-12 04:00] VITALS: BP 154/58
[2017-04-12] MEDS: IV NS 1000 ML 1,000 ML IV PRN (05:09)
[2017-04-12] MEDS: BLOOD SUGAR DIAGNOSTIC 1 EACH STRIP VI SCH ×2 (05:44→12:28)
[2017-04-12] MEDS ORDERED: DEXTROSE 50% 50 ML DISP.SYRIN IV PRN (05:45)
[2017-04-12 06:34] LABS: BASOPHILS # (AUTO) 0.1 K/uL (0.0-8.0); BASOPHILS % (AUTO) 0.7 % (0.0-2.0); EOSINOPHILS # (AUTO) 0.3 K/uL (0.0-0.7); EOSINOPHILS % (AUTO) 2.2 % (0.0-7.0); HEMATOCRIT 26.9 % (36.7-47.1); HEMOGLOBIN 8.8 g/dL (12.5-16.3); LYMPHOCYTES # (AUTO) 0.9 K/uL (20.0-40.0); LYMPHOCYTES % (AUTO) 8.2 % (20.5-51.5); MEAN CORPUSCULAR HEMOGLOBIN 27.7 uug (23.8-33.4); MEAN CORPUSCULAR HGB CONC 33 g/dL (32.5-36.3); MEAN CORPUSCULAR VOLUME 85.1 fL (73.0-96.2); MONOCYTES # (AUTO) 0.9 K/uL (2.0-10.0); MONOCYTES % (AUTO) 8.2 % (0.0-11.0); NEUTROPHILS # (AUTO) 9.3 K/uL (1.8-8.9); NEUTROPHILS % (AUTO) 80.7 % (38.5-71.5); PLATELET COUNT (AUTO) 341 K/uL (152-348); RED BLOOD CELL COUNT(AUTO) 3.17 MIL/uL (4.06-5.63); WHITE BLOOD COUNT (AUTO) 11.5 K/uL (3.6-10.2)
--- NOTE | 2017-04-12 06:43 | NUR ---
Slept good. No complaint presented all night. All needs attended and met. Denies s/s of hyperglycemia. BS 382 mg/dl this time. Will continue to monitor.
[2017-04-12 06:49] LABS: ALANINE AMINOTRANSFERASE 10 U/L (16-63); ALKALINE PHOSPHATASE 83 U/L (50-136); ASPARTATE AMINOTRANSFERASE 10 U/L (15-37); BILIRUBIN,TOTAL 0.3 mg/dL (0.2-1.0); CARBON DIOXIDE 22 mmol/L (21-32); CHLORIDE 99 mmol/L (98-107); CREATININE 2.4 mg/dL (0.6-1.3); PHOSPHOROUS 4.1 mg/dL (2.5-4.9); POTASSIUM 4.8 mmol/L (3.5-5.1); UREA NITROGEN, BLOOD 48 mg/dL (7-18)
[2017-04-12 06:50] LABS: CHOLESTEROL 100 mg/dL (<200); HDL CHOLESTEROL 39 mg/dL (40-60); MAGNESIUM 1.9 mg/dL (1.8-2.4); TOTAL PROTEIN, SERUM 6.1 g/dL (6.4-8.2); TRIGLYCERIDES 81 MG/DL (30-150)
[2017-04-12 07:39] LABS: GLUCOSE 386 mg/dL (74-106)
[2017-04-12] MEDS: INSULIN REGULAR, HUMAN 300 UNIT/3 ML VIAL SQ PRN ×2 (08:02→12:31)
[2017-04-12 08:53] LABS: *BILIRUBIN,URIN NEGATIVE (NEGATIVE); *BLOOD, URINE 2+ (NEGATIVE); *CLARITY,URINE CLEAR (CLEAR); *COLOR,URINE YELLOW (YELLOW); *KETONES,URINE TRACE (NEGATIVE); *PROTEIN,URINE 2+ (NEGATIVE); *UROBILINOGEN,URINE 0.2 E.U./dl (NORMAL); LEUKOCYTE ESTERASE ,URINE NEGATIVE (NEGATIVE); NITRITE, URINE NEGATIVE (NEGATIVE)
[2017-04-12 09:07] LABS: *CREATININE,URINE 51.7 mg/dL (30-125); *URINE TOTAL PROTEIN RANDOM 56.9 mg/dL (<150/24HR)
[2017-04-12 09:41] LABS: UGLUCOSE 1+ (NEGATIVE)
[2017-04-12 09:44] LABS: BACTERIA,URINE FEW /HPF (NONE SEEN); SQUAMOUS EPITHELIAL CELL,UR NONE SEEN /HPF (NONE SEEN); WBC,URINE 0-3 /HPF (0-3)
[2017-04-12] MEDS ORDERED: AMLODIPINE 5 MG TABLET PO SCH (10:45)
[2017-04-12 11:36] VITALS: BP 118/45
[2017-04-12 12:29] VITALS: BP 118/45
[2017-04-12] MEDS ORDERED: FURO20TA4 PO (13:38)
[2017-04-12] MEDS ORDERED: AZIT500T2 PO (13:38)
--- NOTE | 2017-04-12 17:51 | NUR ---
pt is no acute distress. Diascharge instruction given to both caregiver, pt girlfriend and pt son Richard over the phone . pt to followup with imaging administrator and payment rep next week - verbalized understanding. Written prescription for Zpak and Lasix given to pt live in girlfriend to be able to get medication from other pharmacy due to primary pharmacy closed today. Instructed to follow up with primary doctor for vaccine. stoneworker set up PT home health to follow up pt at home. Updated picture of arms, right alan and coccyx area taken.
== END 2017-04-12 16:30 | disposition home health service (06) | DRG 91 ==
LOC: ER 02:33 → TELE 06:06
PROVIDERS: ADMIT Internal Medicine; ATTEND Nurse Practitioner Acute Care
DX: G92 Toxic encephalopathy (principal); I50.33 Acute on chronic diastolic (congestive) heart failure; N17.0 Acute kidney failure with tubular necrosis; E44.0 Moderate protein-calorie malnutrition; E11.22 Type 2 diabetes mellitus with diabetic chronic kidney disease; E11.649 Type 2 diabetes mellitus with hypoglycemia without coma; F17.200 Nicotine dependence, unspecified, uncomplicated; D50.9 Iron deficiency anemia, unspecified; I13.0 Hypertensive heart and chronic kidney disease with heart failure and stage 1 through stage 4 chronic kidney disease, or unspecified chronic kidney disease; E87.1 Hypo-osmolality and hyponatremia; J44.0 Chronic obstructive pulmonary disease with (acute) lower respiratory infection; E83.51 Hypocalcemia; T39.1X5A Adverse effect of 4-Aminophenol derivatives, initial encounter; T42.75XA Adverse effect of unspecified antiepileptic and sedative-hypnotic drugs, initial encounter; Y92.009 Unspecified place in unspecified non-institutional (private) residence as the place of occurrence of the external cause; N18.9 Chronic kidney disease, unspecified; Z79.4 Long term (current) use of insulin; Z79.82 Long term (current) use of aspirin; E03.9 Hypothyroidism, unspecified; F03.90 Unspecified dementia, unspecified severity, without behavioral disturbance, psychotic disturbance, mood disturbance, and anxiety; G89.29 Other chronic pain; M25.511 Pain in right shoulder; Z68.20 Body mass index [BMI] 20.0-20.9, adult; J20.9 Acute bronchitis, unspecified; K59.09 Other constipation; R29.6 Repeated falls; Z79.899 Other long term (current) drug therapy; Z86.73 Personal history of transient ischemic attack (TIA), and cerebral infarction without residual deficits; Z95.2 Presence of prosthetic heart valve; Z91.81 History of falling; Z87.440 Personal history of urinary (tract) infections; E78.5 Hyperlipidemia, unspecified
CPT/HCPCS: 36415; 70030-TC; 70450; 71045; 80307; 83605; 83735; 84100; 84156; 84300; 84443; 85025; 85730; 87040; 87086; 93005; A4663; G0480; G0480-TC; J1815; J2310; J3490; J7030; J7042